=== PATIENT | female | born 1950 | race Caucasian/White ===

== ENCOUNTER → 2017-03-08 | Outpatient (CLI) | payer MEDICARE ==
[~2017-03-08] MED LIST: ASPI1TAB PO; CALTCHW5 PO; CENT1TAB PO; COUM2.5T17 PO; LEVO50TA5 PO; LISI-542 PO; LOVA40TA PO; OSTETAB4 PO; ROPI0.25 PO; ROPI1TAB PO; STOO100C PO; TRAM50TA2 PO; TYLE500T78 PO
[2017-03-08 11:34] LABS: MEAN CORPUSCULAR HEMOGLOBIN 31.6 pg (27.0-33.0); MEAN CORPUSCULAR HGB CONC 32.9 g/dl (32.0-36.5); RED CELL DISTRIBUTION WIDTH 13.4 % (11.5-14.5); WHITE BLOOD COUNT 3.4 K/mm3 (4.0-10.0)
[2017-03-08 11:37] LABS: CALCIUM OXALATE CRYSTALS MODERATE
[2017-03-08 11:38] LABS: INR 0.92
--- NOTE | 2017-03-08 11:56 | REP ---
CHEST, TWO VIEWS: HISTORY: Parkinson's disease. Calcified granuloma are present in the lower lobes. The heart is normal in size. The pulmonary vasculature is normal in appearance. Degenerative change is present in the thoracic spine. IMPRESSION: Old granulomatous disease. Signed by Rafa Cuevas MD 03/08/2017 12:06 P
[2017-03-08 12:08] LABS: ALBUMIN/GLOBULIN RATIO 1.25 (1.00-1.93); ALKALINE PHOSPHATASE 64 U/L (45-117); ALT/SGPT 16 U/L (12-78); ANION GAP 6 MEQ/L (8-16); AST/SGOT 15 U/L (15-37); BILIRUBIN,TOTAL 0.4 MG/DL (0.2-1.0); BLOOD UREA NITROGEN 12 MG/DL (7-18); CALCIUM LEVEL 9.5 MG/DL (8.8-10.2); CARBON DIOXIDE LEVEL 32 MEQ/L (21-32); CHLORIDE LEVEL 105 MEQ/L (98-107); CREATININE FOR GFR 0.93 MG/DL (0.55-1.02); GLOMERULAR FILTRATION RATE > 60.0 (>45); GLUCOSE, FASTING 112 MG/DL (80-110); POTASSIUM SERUM 3.5 MEQ/L (3.5-5.1); SODIUM LEVEL 143 MEQ/L (136-145); TOTAL PROTEIN 7.2 GM/DL (6.4-8.2)
--- NOTE | 2017-03-08 20:33 | ECGEPIP ---
Stationary ECG Study [facility] Test Date: 2017-03-08 Pat Name: PAOLO GUO Department: Room: - Gender: F Field Contact Person: MARIA ELENA : 1950 Requested By: Elio Gillette Order Number: [id number] Reading MD: Reese Perry Measurements Intervals [place] Rate: 65 P: 88 ND: 144 QRS: -6 QRSD: 104 T: 12 QT: 399 QTc: 417 Interpretive Statements SINUS RHYTHM Nonspecific precordial T-wave abnormalities. No prior tracing. Clinical correlation advised. Electronically Signed On 03-08-2017 20:33:31 EDT by Reese Perry
== END ==
LOC: M ADMPAT 09:40
PROVIDERS: ATTEND Orthopaedic Surgery
DX: Z01.818 Encounter for other preprocedural examination (principal); M17.11 Unilateral primary osteoarthritis, right knee; Z79.899 Other long term (current) drug therapy

== ENCOUNTER 2017-03-21 06:38 | Inpatient (IN) | payer MEDICARE ==
[2017-03-08 11:11] VITALS: BP 150/84
--- NOTE | 2017-03-18 05:44 | HPE ---
DATE OF ADMISSION: 03/21/2017 ATTENDING PHYSICIAN: Dr. Elio Gillette. CHIEF COMPLAINT: Right knee pain and stiffness. HISTORY: The patient is a pleasant 66-year-old female with progressively worsening right knee pain and stiffness. She has failed to improve with conservative measures. She continues to have pain with weightbearing activities and activities of daily living. She is consented for an elective right total knee arthroplasty with Dr. Gillette. Medical optimization from Dr. Villalba received and reviewed during today's visit. CURRENT MEDICATIONS: - aspirin 81 mg daily - Caltrate with vitamin D 600/400 mg twice daily - Centrum tablet daily - glucosamine chondroitin daily - Levoxyl 50 mcg daily - lisinopril 5 mg daily - lovastatin 40 mg daily - Requip 0.5 mg three times daily ALLERGIES: No known drug allergies CURRENT MEDICAL CONDITIONS: 1. Parkinson's disease. 2. Stage III chronic kidney disease. 3. Normochromic, normocytic anemia. 4. Essential hypertension. 5. Fatigue. 6. Hyperlipidemia. 7. Hypothyroidism. 8. Impaired fasting glucose. SURGICAL HISTORY: Appendectomy. SOCIAL HISTORY: The patient is not a smoker and only socially consumes alcohol. She is living with her daughter. REVIEW OF SYSTEMS: The patient denies fevers, chills, nausea, vomiting or diarrhea. She denies chest pain, shortness of breath, lightheadedness, dizziness or headaches. She does have continued right knee pain with weightbearing activities and activities of daily living. EXAMINATION: GENERAL: Well-nourished, well-developed female in no apparent distress. NECK: No lymphadenopathy or jugular venous distention noted. HEART: Regular rate and rhythm. LUNGS: Clear to auscultation bilaterally. ABDOMEN: Soft, nontender to palpation. MUSCULOSKELETAL: The patient is walking with a slight limp favoring the right side. Inspection of the right knee revealed no gross abnormalities. Her skin is intact. She can extend to about 5 degrees and flex fully. Right lower extremity strength is normal. There was no hip irritability elicited with range of motion. Her calf is soft and nontender to palpation with no palpable cords noted. Pedal pulses are palpable. Right lower extremity appears to be warm and well perfused. VITAL SIGNS: Height 5 feet 3 inches, weight 172 pounds. Temperature 97.6, blood pressure 166/88, heart rate 84, respiratory rate 20. DIAGNOSTIC DATA: Chest x-ray reveals old granulomatous disease. EKG sinus rhythm with nonspecific precordial T-wave abnormalities. Urinalysis negative with urine culture revealing less than 10,000 colony-forming units (CFU) per mL. Nasal and sinus culture show no growth. Complete blood count: WBC is decreased at 3.4. RBC is decreased at 3.72. Hemoglobin decreased at 11.8, hematocrit decreased at 35.7, platelets 257. Erythrocyte sedimentation rate 26. Prothrombin time 12.4, INR 0.92. Comprehensive metabolic profile: Fasting glucose elevated at 112, BUN 12, creatinine 0.93, GFR greater than 60, sodium 143, potassium 3.5, chloride 105, carbon dioxide 32, anion gap decreased at six, calcium 9.5, AST 15, ALT 16, alkaline phosphatase 64, total bilirubin 0.4, total protein 7.2, albumin 4.0, albumin-globulin ratio 1.25. ASSESSMENT: Right knee osteoarthritis with x-ray notable for end-stage degenerative changes. PLAN: The patient has consented for an elective right total knee arthroplasty with Dr. Gillette. NOREEN
[~2017-03-21] VITALS: Ht 162.6 cm; Wt 78.5 kg
[2017-03-21] VITALS (10 sets, daily range): BP systolic 145–192; BP diastolic 65–87; O2SAT 96–97
[~2017-03-21 06:38] MED LIST changes: -COUM2.5T17 PO; -TRAM50TA2 PO
[2017-03-21] MEDS ORDERED: LR 1,000 ML IV SCH ×3 (07:00→11:45)
[2017-03-21] MEDS ORDERED: LIDOCAINE 1% SDV 5 ML VIAL SQ ONE (07:00)
[2017-03-21] MEDS ORDERED: MIDAZOLAM INJ 2 MG/2 ML VIAL (J2250) As Ordered ONE ×2 (08:19→10:39)
[2017-03-21] MEDS ORDERED: fentaNYL 100 MCG/2 ML INJECTION (J3010) As Ordered ONE ×2 (08:19→09:46)
[2017-03-21] MEDS ORDERED: TRANEXAMIC ACID 100 MG/ML 10ML VIAL As Ordered ONE (08:48)
[2017-03-21] MEDS ORDERED: BUPIVACAINE HCL 0.25% 30 ML VIAL As Ordered ONE (08:48)
[2017-03-21] MEDS ORDERED: EPINEPHrine INJ 1 MG/ML 1ML AMP As Ordered ONE (08:49)
[2017-03-21] MEDS ORDERED: ceFAZolin 1GM INJ (J0690) As Ordered ONE (08:49)
[2017-03-21] MEDS: MIDAZOLAM INJ 2 MG/2 ML VIAL (J2250) IV SCH ×2 (08:54→08:56)
[2017-03-21] MEDS ORDERED: fentaNYL 100 MCG/2 ML INJECTION (J3010) IV SCH (09:30)
--- NOTE | 2017-03-21 09:47 | HPE ---
DATE OF ADMISSION: 03/21/2017 The patient seen and examined. She wished to go ahead with a right knee replacement. Her medical clearance was obtained. She understands the nature of procedure, the risks of bleeding, infection, damage to nerves, vessels, persistent pain, wear loosening, blood clots, medical problems, , among others on.
[2017-03-21] MEDS ORDERED: FLEET ENEMA PR PRN (11:45)
[2017-03-21] MEDS ORDERED: fentaNYL 100 MCG/2 ML INJECTION (J3010) IV PRN (11:45)
[2017-03-21] MEDS ORDERED: PERCOCET 5MG/325MG TAB PO PRN (11:45)
[2017-03-21] MEDS ORDERED: ONDANSETRON 4MG/2ML VIAL (J2405) IV PRN ×3 (11:45→12:00)
[2017-03-21] MEDS ORDERED: HYDROmorphone HCL 1 MG/ML SYRINGE (J1170) IV PRN (11:45)
[2017-03-21] MEDS ORDERED: MORPHINE 1MG/ML IN 0.9% NACL 100ML IV BAG IV PRN (12:00)
[2017-03-21] MEDS ORDERED: EPIDURAL/PCA KEYS XX PRN (12:00)
[2017-03-21] MEDS ORDERED: NALOXONE INJ 0.4 MG/1 ML VIAL (J2310) IV PRN (12:00)
[2017-03-21] MEDS ORDERED: diphenhydrAMINE INJ 50MG/ML VIAL (J1200) IV PRN (12:00)
[2017-03-21] MEDS ORDERED: NALBUPHINE HCL 10 MG/ML AMP (J2300) IV PRN (12:00)
[2017-03-21] MEDS ORDERED: PATIENT IS CURRENTLY ON AN ON-Q PAIN BUSTER PAIN RELIEF SYSTEM XX SCH (13:45)
[2017-03-21] MEDS ORDERED: LIDOCAINE 2% INJ 100 MG/5 ML SDV (FOR ANES.) As Ordered ONE (13:59)
[2017-03-21] MEDS ORDERED: PROPOFOL 200 MG/20 ML VIAL As Ordered ONE (13:59)
--- NOTE | 2017-03-21 14:13 | CR.PDOC ---
[facility] Consultation Consultation DATE OF CONSULTATION: 03/21/17 PRIMARY CARE PHYSICIAN: Dr. Malhotra REFERRING PROVIDER: Dr. Gillette ATTENDING PHYSICIAN: Dr. Gillette REASON FOR CONSULTATION/CHIEF COMPLAINT: Medical comanagement HISTORY OF PRESENT ILLNESS: This is a 66-year-old female past medical history of Parkinson's disease diagnosed in September, CK D stage III, history of frequent UTIs, hypertension who presents for an elective knee arthroplasty for symptomatic arthritis. We have been consulted for medical comanagement. Patient denies any chest pain/shortness breath/palpitations. No nausea/vomiting/ abd pain. States she currently feels well postop. States she has a history of chronic kidney disease however has been trying to get into her nephrologists clinic in [place] for follow-up. States she occasionally takes hydrochlorothiazide for edema however has not had any recent edema and her hydrochlorothiazide had been stopped because of her renal function. ALLERGIES: Please see below. HOME MEDICATIONS: Please see below. PAST MEDICAL HISTORY: As per HPI PAST SURGICAL HISTORY: Cholecystectomy, appendectomy, breast mass excision ( benign), hernia repair, parathyroid resection FAMILY HISTORY: Noncontributory SOCIAL HISTORY: Denies tobacco, alcohol, illicit drug use. REVIEW OF SYSTEMS: HEENT: Denies sore throat/headache CARDIOVASCULAR: Denies chest pain/palpitations RESPIRATORY: Denies shortness of breath/cough GASTROINTESTINAL: denies nausea/vomiting GENITOURINARY: Denies dysuria/urinary urgency. MUSCULOSKELETAL: Denies myalgias/arthralgias NEUROLOGICAL: Denies any focal weakness PHYSICAL EXAMINATION: Vitals: (see below) General: No acute distress, laying comfortably in bed. HEENT: Moist mucous membranes. Neck: No JVD or lymphadenopathy Cardiac: RRR, No murmurs Pulm: Clear to auscultation b/l. No wheezing, rhonchi Abd: NT/ND + BS Ext: No edema or cyanosis. Right knee with Miguelito bandage. Distal pulses intact. Right upper extremity with resting tremor. LABORATORY DATA: Please see below. CBC/BMP/magnesium pending. ASSESSMENT/PLAN: 1. Postop day 0 status post knee arthroplasty for symptomatic arthritis. Management per orthopedics. 2. History of Parkinson's disease- continue home meds 3. History of hypertension- continue home meds 4. History of CAD stage III- we'll repeat BMP now. Avoid nephrotoxins. 5. History of hyperparathyroidism status post resection 6. Hypothyroidism- continue Synthroid 7. Hyperlipidemia- continue statin DVT prophylaxis- per orthopedics Patient was followed by Dr. Luana Moreira starting 03/22/17 at 7 AM. Vital Signs/I&O Vital Signs Date Time Temp Pulse Resp B/P (MAP) Pulse Ox O2 Delivery O2 Flow Rate FiO2 03/21/17 13:55 96 Nasal Cannula 2.0 03/21/17 13:15 98.6 66 15 148/76 (100) Allergies Coded Allergies: No Known Allergies (Verified , 02/25/03) Home Medications Scheduled (Caltrate 600+D 600-400 mg-Unit) 1 Chw Chw, 1 CHW PO DAILY, (Reported) (Osteo Bi-Flex Advanced Do) 1 Tab Tab, 1 TAB PO DAILY, (Reported) Aspirin (Aspirin 81) 81 Mg Tab, 81 MG PO DAILY, #30 (Reported) Docusate Sodium (Stool Softener) 100 Mg Cap, 200 MG PO DAILY, (Reported) Levothyroxine Sodium (Synthroid) 50 Mcg Tab, 50 MCG PO DAILY, (Reported) Lisinopril (Lisinopril) 5 Mg Tab, 5 MG PO DAILY, (Reported) Lovastatin (Lovastatin) 40 Mg Tab, 40 MG PO QHS, (Reported) Multivitamins (Centrum Silver Adult 50+) 1 Tab Tab, 1 TAB PO DAILY, (Reported) Ropinirole Hydrochloride (Ropinirole HCl) 0.25 Mg Tab, 0.25 MG PO TID, (Reported ) Ropinirole Hydrochloride (Ropinirole HCl) 1 Mg Tab, 1 MG PO TID, (Reported) Scheduled PRN Acetaminophen (Tylenol Extra Strength) 500 Mg Tab, 1,000 MG PO Q6H PRN for PAIN, (Reported) RAPID RELEASE STARR BRADLEY MD Mar 21, 2017 14:13
[2017-03-21 14:30] LABS: MEAN CORPUSCULAR HEMOGLOBIN 31.9 pg (27.0-33.0); MEAN CORPUSCULAR HGB CONC 33.2 g/dl (32.0-36.5); MEAN CORPUSCULAR VOLUME 95.9 fl (80.0-96.0); RED CELL DISTRIBUTION WIDTH 13.3 % (11.5-14.5); WHITE BLOOD COUNT 6.8 K/mm3 (4.0-10.0)
[2017-03-21 14:38] LABS: INR 0.97
[2017-03-21 14:54] LABS: ANION GAP 8 MEQ/L (8-16); BLOOD UREA NITROGEN 14 MG/DL (7-18); CALCIUM LEVEL 9.2 MG/DL (8.8-10.2); CARBON DIOXIDE LEVEL 29 MEQ/L (21-32); CHLORIDE LEVEL 105 MEQ/L (98-107); CREATININE FOR GFR 0.82 MG/DL (0.55-1.02); GLOMERULAR FILTRATION RATE > 60.0 (>45); GLUCOSE, FASTING 135 MG/DL (80-110); MAGNESIUM LEVEL 1.9 MG/DL (1.8-2.4); POTASSIUM SERUM 3.9 MEQ/L (3.5-5.1); SODIUM LEVEL 142 MEQ/L (136-145)
[2017-03-21] MEDS: LISINOPRIL 5 MG TAB PO SCH (15:26)
[2017-03-21] MEDS: rOPINIRole 1MG TAB PO SCH ×2 (15:26→20:20)
[2017-03-21] MEDS: rOPINIRole 0.25 MG TAB(REQUIP) PO SCH ×2 (15:26→20:20)
[2017-03-21] MEDS: LR 1,000 ML IV SCH (15:26)
[2017-03-21] MEDS: DOCUSATE SODIUM 100 MG CAP PO SCH (15:26)
[2017-03-21] MEDS: MULTIVITAMINS/MINERALS THERAP 1 TAB PO SCH (15:30)
[2017-03-21] MEDS ORDERED: WARFARIN SOD 5 MG TAB PO ONE (17:00)
[2017-03-21] MEDS: ceFAZolin SOD 1 GM in D5W MINI-BAG PLUS 50 ML IV SCH (18:00)
[2017-03-21] MEDS: SIMVASTATIN 40 MG TAB PO SCH (20:19)
[2017-03-21] MEDS ORDERED: hydrOXYzine 25 MG TAB PO ONE (23:00)
[2017-03-22] VITALS (7 sets, daily range): BP systolic 121–200; BP diastolic 58–98; O2SAT 92
[2017-03-22] MEDS: LR 1,000 ML IV SCH (01:05)
[2017-03-22] MEDS: ACETAMINOPHEN TAB 650MG DOSE (2X325MG) PO PRN ×2 (01:32→06:27)
[2017-03-22] MEDS: ceFAZolin SOD 1 GM in D5W MINI-BAG PLUS 50 ML IV SCH (02:04)
[2017-03-22] MEDS ORDERED: LABETALOL 200 MG TAB PO ONE (03:00)
[2017-03-22] MEDS: LEVOTHYROXINE 50MCG TABLET (0.05MG) PO SCH (06:27)
[2017-03-22 06:32] LABS: MEAN CORPUSCULAR HEMOGLOBIN 32.6 pg (27.0-33.0); MEAN CORPUSCULAR HGB CONC 33.8 g/dl (32.0-36.5); MEAN CORPUSCULAR VOLUME 96.5 fl (80.0-96.0); RED CELL DISTRIBUTION WIDTH 13.4 % (11.5-14.5)
[2017-03-22 06:39] LABS: INR 1.24
[2017-03-22] MEDS ORDERED: ONDANSETRON 4 MG TAB (S0181) PO PRN (06:45)
[2017-03-22 07:00] LABS: ANION GAP 10 MEQ/L (8-16); BLOOD UREA NITROGEN 15 MG/DL (7-18); CALCIUM LEVEL 8.8 MG/DL (8.8-10.2); CARBON DIOXIDE LEVEL 29 MEQ/L (21-32); CHLORIDE LEVEL 102 MEQ/L (98-107); GLOMERULAR FILTRATION RATE > 60.0 (>45); GLUCOSE, FASTING 152 MG/DL (80-110); MAGNESIUM LEVEL 1.7 MG/DL (1.8-2.4); POTASSIUM SERUM 3.7 MEQ/L (3.5-5.1); SODIUM LEVEL 141 MEQ/L (136-145)
[2017-03-22] MEDS: MIRALAX *UNIT DOSE* 17GM PACKET PO SCH (08:21)
[2017-03-22] MEDS: MOM 30ML SUSPENSION UDC PO SCH (08:21)
[2017-03-22] MEDS: rOPINIRole 1MG TAB PO SCH ×3 (08:22→21:10)
[2017-03-22] MEDS: LISINOPRIL 5 MG TAB PO SCH (08:22)
[2017-03-22] MEDS: traMADol 50 MG TAB PO PRN ×4 (08:22→23:00)
[2017-03-22] MEDS: SENOKOT S TAB PO SCH ×2 (08:22→21:11)
[2017-03-22] MEDS: rOPINIRole 0.25 MG TAB(REQUIP) PO SCH ×3 (08:22→21:10)
[2017-03-22] MEDS: DOCUSATE SODIUM 100 MG CAP PO SCH (08:22)
[2017-03-22] MEDS: MULTIVITAMINS/MINERALS THERAP 1 TAB PO SCH (08:22)
--- NOTE | 2017-03-22 11:58 | REP ---
RIGHT KNEE, TWO VIEWS: HISTORY: Knee replacement. COMPARISON: 02/06/2016 The patient is status post right total knee replacement. There is no acute fracture or dislocation. Surgical arielle and a small amount of air are present in the overlying subcutaneous tissue. IMPRESSION: The patient is status post right total knee replacement. There is anatomic alignment. Signed by Rafa Cuevas MD 03/22/2017 12:31 P
--- NOTE | 2017-03-22 13:16 | IPNPDOC ---
Date Seen The patient was seen on 03/22/17. Progress Note Hospitalist Progress Note Subjective: Patient states that she has significant pain in her knee, she does note that she just worked with physical therapy Objective: Physical Exam: Vitals: Vital Sign - Last 24 Hours 03/21/17 03/21/17 03/21/17 03/21/17 13:55 14:15 15:15 15:26 Temp 97.9 98.7 Pulse 81 78 Resp 15 13 B/P (MAP) 184/82 (116) 180/84 (116) 180/84 Pulse Ox 96 98 94 O2 Delivery Nasal Cannula Room Air Room Air O2 Flow Rate 2.0 03/21/17 03/21/17 03/21/17 03/21/17 16:15 17:15 20:00 20:00 Temp 99.0 99.5 Pulse 97 113 Resp 14 19 B/P (MAP) 147/65 (92) 192/81 (118) Pulse Ox 95 97 97 O2 Delivery Room Air Room Air Nasal Cannula Nasal Cannula O2 Flow Rate 2.0 2.0 03/21/17 03/21/17 03/22/17 03/22/17 22:00 22:23 02:00 02:00 Temp 97.7 98.1 Pulse 116 113 114 118 Resp 16 17 B/P (MAP) 187/87 (120) 169/83 (111) 200/98 (132) 200/98 (132) Pulse Ox 97 96 O2 Delivery Room Air Room Air 03/22/17 03/22/17 03/22/17 03/22/17 02:40 03:01 04:10 06:00 Temp 98.9 Pulse 118 95 79 Resp 16 B/P (MAP) 182/80 (114) 182/80 147/85 (105) 121/58 (79) Pulse Ox 91 O2 Delivery Room Air 03/22/17 03/22/17 03/22/17 03/22/17 08:22 08:22 08:30 08:52 Resp 14 14 B/P (MAP) 121/58 O2 Delivery Room Air Room Air 03/22/17 03/22/17 09:54 13:01 Resp 14 Pulse Ox 92 O2 Delivery Room Air General: Awake, Alert, no acute distress HEENT: Normocephalic, atraumatic, extraocular movements intact CV: Regular rate and rhythm Lungs: Clear to auscultation bilaterally Abd: Soft, nontender, nondistended Extremities: Pedal pulses intact bilaterally, right knee in an Miguelito bandage Neuro: Alert and oriented 3, normal speech Psych: And normal mood and affect Labs and Imaging: Laboratory Tests 03/21/17 14:23 Red Blood Count 3.59 L, Mean Corpuscular Volume 95.9, Mean Corpuscular Hemoglobin 31.9, Mean Corpuscular Hemoglobin Concent 33.2, Red Cell Distribution Width 13.3, Calcium Level 9.2 03/22/17 06:16 Red Blood Count 3.05 L, Mean Corpuscular Volume 96.5 H, Mean Corpuscular Hemoglobin 32.6, Mean Corpuscular Hemoglobin Concent 33.8, Red Cell Distribution Width 13.4, Calcium Level 8.8 Assessment and Plan: 66-year-old female with Parkinson's disease, chronic kidney disease stage III, hypertension, hypothyroidism who was admitted by orthopedics for an elective right knee arthroplasty. We have been consulted for medical comanagement. 1. Chronic kidney disease stage III: The patient's BUN, creatinine, and GFR are currently within normal limits. We'll continue to monitor and we'll avoid nephrotoxic medications. 2. Hypertension: BP was elevated last night when the patient was agitated and in pain, but it is now improving. We'll continue to monitor and will continue home MIGUELITO inhibitor. 3. Hypothyroidism: Continue home Synthroid. 4. Parkinson's disease: Continue home Requip. DVT prophylaxis: As per her primary surgical team VS, I&O, 24H, [facility] Vital Signs/I&O Vital Signs Date Time Temp Pulse Resp B/P (MAP) Pulse Ox O2 Delivery O2 Flow Rate FiO2 03/22/17 13:01 14 03/22/17 09:54 92 Room Air 03/22/17 08:22 121/58 03/22/17 06:00 98.9 79 03/21/17 20:00 2.0 I&O- Last 24 Hours up to 6 AM 03/22/17 06:00 Intake Total 2200 ml Output Total 1150 ml Balance 1050 ml Laboratory Data 24H LABS Laboratory Tests 2 03/21/17 14:23: Prothrombin Time 13.0, Prothromb Time International Ratio 0.97, Activated Partial Thromboplast Time 26.9, Anion Gap 8, Glomerular Filtration Rate > 60.0, Blood Urea Nitrogen 14, Creatinine 0.82, Sodium Level 142, Potassium Level 3.9, Chloride Level 105, Carbon Dioxide Level 29, Calcium Level 9.2, Magnesium Level 1.9 03/22/17 06:16: Prothrombin Time 15.8H, Prothromb Time International Ratio 1.24, Anion Gap 10, Glomerular Filtration Rate > 60.0, Blood Urea Nitrogen 15, Creatinine 0.90, Sodium Level 141, Potassium Level 3.7, Chloride Level 102, Carbon Dioxide Level 29, Calcium Level 8.8, Magnesium Level 1.7L CBC/BMP Laboratory Tests 03/21/17 14:23 Red Blood Count 3.59 L, Mean Corpuscular Volume 95.9, Mean Corpuscular Hemoglobin 31.9, Mean Corpuscular Hemoglobin Concent 33.2, Red Cell Distribution Width 13.3, Calcium Level 9.2 03/22/17 06:16 Red Blood Count 3.05 L, Mean Corpuscular Volume 96.5 H, Mean Corpuscular Hemoglobin 32.6, Mean Corpuscular Hemoglobin Concent 33.8, Red Cell Distribution Width 13.4, Calcium Level 8.8 NICKY BURRELL Mar 22, 2017 13:16
[2017-03-22] MEDS ORDERED: WARFARIN SOD 5 MG TAB PO ONE (17:00)
[2017-03-22] MEDS: SIMVASTATIN 40 MG TAB PO SCH (21:11)
[2017-03-23 06:00] VITALS: BP 123/65
[2017-03-23] MEDS: LEVOTHYROXINE 50MCG TABLET (0.05MG) PO SCH (06:01)
[2017-03-23] MEDS: traMADol 50 MG TAB PO PRN ×2 (06:02→13:40)
[2017-03-23 06:52] LABS: MEAN CORPUSCULAR HEMOGLOBIN 32.7 pg (27.0-33.0); MEAN CORPUSCULAR HGB CONC 34.1 g/dl (32.0-36.5); MEAN CORPUSCULAR VOLUME 96.1 fl (80.0-96.0); RED CELL DISTRIBUTION WIDTH 13.4 % (11.5-14.5); WHITE BLOOD COUNT 5.2 K/mm3 (4.0-10.0)
[2017-03-23 06:57] LABS: INR 2.08
[2017-03-23 07:11] LABS: ANION GAP 7 MEQ/L (8-16); BLOOD UREA NITROGEN 13 MG/DL (7-18); CALCIUM LEVEL 8.7 MG/DL (8.8-10.2); CARBON DIOXIDE LEVEL 33 MEQ/L (21-32); CHLORIDE LEVEL 101 MEQ/L (98-107); GLOMERULAR FILTRATION RATE > 60.0 (>45); GLUCOSE, FASTING 95 MG/DL (80-110); POTASSIUM SERUM 3.7 MEQ/L (3.5-5.1); SODIUM LEVEL 141 MEQ/L (136-145)
[2017-03-23] MEDS ORDERED: COUM2.5T17 PO (07:46)
[2017-03-23] MEDS ORDERED: TRAM50TA2 PO (07:46)
[2017-03-23] MEDS: MOM 30ML SUSPENSION UDC PO SCH (09:32)
[2017-03-23] MEDS: rOPINIRole 1MG TAB PO SCH ×3 (09:32→20:11)
[2017-03-23] MEDS: rOPINIRole 0.25 MG TAB(REQUIP) PO SCH ×3 (09:33→20:11)
[2017-03-23] MEDS: DOCUSATE SODIUM 100 MG CAP PO SCH (09:33)
[2017-03-23] MEDS: MULTIVITAMINS/MINERALS THERAP 1 TAB PO SCH (09:33)
[2017-03-23] MEDS: SENOKOT S TAB PO SCH ×2 (09:33→20:11)
[2017-03-23] MEDS: LISINOPRIL 5 MG TAB PO SCH (09:34)
[2017-03-23] MEDS: MIRALAX *UNIT DOSE* 17GM PACKET PO SCH (09:34)
--- NOTE | 2017-03-23 12:20 | IPNPDOC ---
Date Seen The patient was seen on 03/23/17. Progress Note Hospitalist Progress Note Subjective: Patient states that her knee pain is a little better but still noticeable; she otherwise has no complaints Objective: Physical Exam: Vitals: Vital Sign - Last 24 Hours 03/22/17 03/22/17 03/22/17 03/22/17 13:01 13:31 14:00 16:44 Temp 99.7 Pulse 76 Resp 14 14 12 15 B/P (MAP) 135/64 (87) Pulse Ox 95 O2 Delivery Room Air 03/22/17 03/22/17 03/22/17 03/22/17 18:02 19:59 22:00 23:00 Temp 99.8 Pulse 83 Resp 16 16 B/P (MAP) 144/65 (91) Pulse Ox 95 O2 Delivery Room Air Room Air Room Air 03/23/17 03/23/17 03/23/17 03/23/17 06:00 06:02 07:00 09:34 Temp 97.9 Pulse 80 Resp 16 14 18 B/P (MAP) 123/65 (84) 123/65 Pulse Ox 96 O2 Delivery Room Air 03/23/17 09:43 O2 Delivery Room Air General: Awake, Alert, no acute distress HEENT: Normocephalic, atraumatic, extraocular movements intact CV: Regular rate and rhythm Lungs: Clear to auscultation bilaterally Abd: Soft, nontender, nondistended Extremities: Pedal pulses intact bilaterally, right knee in an Miguelito bandage Neuro: Alert and oriented 3, normal speech Psych: normal mood and affect Labs and Imaging: Laboratory Tests 03/23/17 06:15 Red Blood Count 2.85 L, Mean Corpuscular Volume 96.1 H, Mean Corpuscular Hemoglobin 32.7, Mean Corpuscular Hemoglobin Concent 34.1, Red Cell Distribution Width 13.4, Calcium Level 8.7 L Assessment and Plan: 66-year-old female with Parkinson's disease, chronic kidney disease stage III, hypertension, hypothyroidism who was admitted by orthopedics for an elective right knee arthroplasty. We have been consulted for medical comanagement. 1. Chronic kidney disease stage III: The patient's BUN, creatinine, and GFR are currently within normal limits. We'll continue to monitor and we'll avoid nephrotoxic medications. 2. Hypertension: Adequately controlled. We'll continue to monitor and will continue home MIGUELITO inhibitor. 3. Hypothyroidism: Continue home Synthroid. 4. Parkinson's disease: Continue home Requip. DVT prophylaxis: As per her primary surgical team VS, I&O, 24H, [facility] Vital Signs/I&O Vital Signs Date Time Temp Pulse Resp B/P (MAP) Pulse Ox O2 Delivery O2 Flow Rate FiO2 03/23/17 09:43 Room Air 03/23/17 09:34 123/65 03/23/17 07:00 18 03/23/17 06:00 97.9 80 96 03/21/17 20:00 2.0 I&O- Last 24 Hours up to 6 AM 03/23/17 06:00 Intake Total 600 ml Output Total 650 ml Balance -50 ml Laboratory Data 24H LABS Laboratory Tests 2 03/23/17 06:15: Prothrombin Time 24.1H, Prothromb Time International Ratio 2.08, Anion Gap 7L, Glomerular Filtration Rate > 60.0, Blood Urea Nitrogen 13, Creatinine 0.80, Sodium Level 141, Potassium Level 3.7, Chloride Level 101, Carbon Dioxide Level 33H, Calcium Level 8.7L, Magnesium Level 2.0 CBC/BMP Laboratory Tests 03/23/17 06:15 Red Blood Count 2.85 L, Mean Corpuscular Volume 96.1 H, Mean Corpuscular Hemoglobin 32.7, Mean Corpuscular Hemoglobin Concent 34.1, Red Cell Distribution Width 13.4, Calcium Level 8.7 L NICKY BURRELL Mar 23, 2017 12:20
[2017-03-23 14:00] VITALS: BP 127/60
[2017-03-23] MEDS ORDERED: WARFARIN SOD 2.5 MG TAB PO ONE (17:00)
[2017-03-23] MEDS: ACETAMINOPHEN TAB 650MG DOSE (2X325MG) PO PRN ×2 (18:05→22:09)
[2017-03-23] MEDS: SIMVASTATIN 40 MG TAB PO SCH (20:11)
[2017-03-23 20:48] VITALS: O2SAT 93
[2017-03-23 22:00] VITALS: BP 125/60
[2017-03-24] MEDS: ACETAMINOPHEN TAB 650MG DOSE (2X325MG) PO PRN ×2 (02:39→08:53)
[2017-03-24] MEDS: LEVOTHYROXINE 50MCG TABLET (0.05MG) PO SCH (05:50)
[2017-03-24 06:00] VITALS: BP 108/53
[2017-03-24 07:26] LABS: INR 2.14
[2017-03-24 07:28] LABS: ANION GAP 10 MEQ/L (8-16); BLOOD UREA NITROGEN 16 MG/DL (7-18); CALCIUM LEVEL 8.4 MG/DL (8.8-10.2); CARBON DIOXIDE LEVEL 32 MEQ/L (21-32); CHLORIDE LEVEL 100 MEQ/L (98-107); CREATININE FOR GFR 0.75 MG/DL (0.55-1.02); GLOMERULAR FILTRATION RATE > 60.0 (>45); GLUCOSE, FASTING 103 MG/DL (80-110); MAGNESIUM LEVEL 2.3 MG/DL (1.8-2.4); POTASSIUM SERUM 3.6 MEQ/L (3.5-5.1); SODIUM LEVEL 142 MEQ/L (136-145)
[2017-03-24] MEDS: rOPINIRole 1MG TAB PO SCH (08:49)
[2017-03-24] MEDS: MULTIVITAMINS/MINERALS THERAP 1 TAB PO SCH (08:49)
[2017-03-24 08:50] VITALS: BP 108/53
[2017-03-24] MEDS: MIRALAX *UNIT DOSE* 17GM PACKET PO SCH (08:50)
[2017-03-24] MEDS: MOM 30ML SUSPENSION UDC PO SCH (08:50)
[2017-03-24] MEDS: LISINOPRIL 5 MG TAB PO SCH (08:50)
[2017-03-24] MEDS: SENOKOT S TAB PO SCH (08:50)
[2017-03-24] MEDS: rOPINIRole 0.25 MG TAB(REQUIP) PO SCH (08:50)
[2017-03-24] MEDS: DOCUSATE SODIUM 100 MG CAP PO SCH (08:50)
[2017-03-24 09:41] VITALS: O2SAT 98
--- NOTE | 2017-03-24 14:01 | IPNPDOC ---
Date Seen The patient was seen on 03/24/17. Progress Note Hospitalist Progress Note Subjective: Patient denies any problems other than pain in her knee Objective: Physical Exam: Vitals: Vital Sign - Last 24 Hours 03/23/17 03/23/17 03/23/17 03/24/17 15:17 20:48 22:00 06:00 Temp 98.8 98.3 Pulse 74 67 Resp 18 13 14 B/P (MAP) 125/60 (81) 108/53 (71) Pulse Ox 93 99 99 O2 Delivery Room Air Room Air Room Air 03/24/17 03/24/17 03/24/17 08:50 09:39 09:41 B/P (MAP) 108/53 Pulse Ox 98 O2 Delivery Room Air Room Air General: Awake, Alert, no acute distress HEENT: Normocephalic, atraumatic, extraocular movements intact CV: Regular rate and rhythm Lungs: Clear to auscultation bilaterally Abd: Soft, nontender, nondistended Extremities: Pedal pulses intact bilaterally, right knee in an Miguelito bandage Neuro: Alert and oriented 3, normal speech Psych: normal mood and affect Labs and Imaging: Laboratory Tests 03/24/17 06:15 Calcium Level 8.4 L Assessment and Plan: 66-year-old female with Parkinson's disease, chronic kidney disease stage III, hypertension, hypothyroidism who was admitted by orthopedics for an elective right knee arthroplasty. We have been consulted for medical comanagement. 1. Chronic kidney disease stage III: The patient's BUN, creatinine, and GFR are currently within normal limits. We'll continue to monitor and we'll avoid nephrotoxic medications. 2. Hypertension: Adequately controlled. We'll continue to monitor and will continue home MIGUELITO inhibitor. 3. Hypothyroidism: Continue home Synthroid. 4. Parkinson's disease: Continue home Requip. DVT prophylaxis: As per her primary surgical team VS, I&O, 24H, [facility] Vital Signs/I&O Vital Signs Date Time Temp Pulse Resp B/P (MAP) Pulse Ox O2 Delivery O2 Flow Rate FiO2 03/24/17 09:41 98 Room Air 03/24/17 08:50 108/53 03/24/17 06:00 98.3 67 14 03/21/17 20:00 2.0 I&O- Last 24 Hours up to 6 AM 03/24/17 05:59 Intake Total 840 ml Output Total 750 ml Balance 90 ml Laboratory Data 24H LABS Laboratory Tests 2 03/24/17 06:15: Prothrombin Time 24.7H, Prothromb Time International Ratio 2.14, Anion Gap 10, Glomerular Filtration Rate > 60.0, Blood Urea Nitrogen 16, Creatinine 0.75, Sodium Level 142, Potassium Level 3.6, Chloride Level 100, Carbon Dioxide Level 32, Calcium Level 8.4L, Magnesium Level 2.3 CBC/BMP Laboratory Tests 03/24/17 06:15 Calcium Level 8.4 L NICKY BURRELL Mar 24, 2017 14:01
--- NOTE | 2017-03-30 15:29 | DSES ---
DATE OF ADMISSION: 03/21/2017 DATE OF DISCHARGE: 03/24/2017 ADMITTING DIAGNOSIS: Right knee osteoarthritis. OTHER DIAGNOSES: 1. Parkinson's disease. 2. Stage III chronic kidney disease. 3. Normocytic, normochromic anemia. 4. Hypertension. 5. Fatigue. 6. Hyperlipidemia. 7. Hyperthyroidism. 8. Impaired fasting glucose. DISCHARGE DIAGNOSIS: Right knee osteoarthritis status post right total knee arthroplasty. HISTORY: Patient is a 66-year-old female with progressively worsening right knee pain and stiffness. She continues to have pain with weightbearing activities and activities of daily living. She has not improved with conservative measures, so she has consented for an elective right total knee arthroplasty with Dr. Elio Gillette. OPERATION PERFORMED: Right total knee arthroplasty. HOSPITAL COURSE: Patient underwent a right total knee arthroplasty under spinal anesthesia, which was uneventful. She was up with physical therapy per their protocol, weightbearing as tolerated on the right lower extremity. She was discharged on oral pain medications with instructions to resume her preoperative medications and diet. She will use her thromboembolic deterrent stockings and take her Coumadin for 30 days postoperatively to prevent deep vein thrombosis. Patient will followup in our office in 12-14 days for a wound check or staple removal. She is encouraged to contact our office sooner if there is any increased pain, drainage, redness, numbness, or tingling in the extremities, fever greater than 101 degrees, or any other concerns. Please see medical record for additional details. NOREEN
--- NOTE | 2017-04-08 12:35 | RO ---
DATE OF PROCEDURE: 03/21/2017 PREOPERATIVE DIAGNOSIS: Right knee osteoarthritis. POSTOPERATIVE DIAGNOSIS: Right knee osteoarthritis. PROCEDURE: Right total knee arthroplasty using a PFC size 3 femur, size 3 tibia, 15 polyethylene and unknown patellar size, which would be documented in the record. SURGEON: Dr. Elio Gillette MIXER ATTENDANT: Archie Velazquez ANESTHESIA: Spinal with block. COMPLICATIONS: None. INDICATIONS: This is a 66-year-old woman who has had gradually worsening right knee pain. She wished to go ahead with knee replacement having failed conservative management. She understood the nature of this and the risks of bleeding, infection, damage to nerves, vessels, persistent pain, wear, loosening, blood clots, medical problems, among others, including . Preop clearance was obtained. PROCEDURE: The patient was taken to the operating room and placed in supine position after spinal anesthesia was induced. The right lower extremity was prepped and draped in the usual sterile fashion. A time-out was performed. I then created a longitudinal incision over the anterior aspect of the knee. Sharp dissection was carried down through subcutaneous tissue. I performed a medial parapatellar arthrotomy. The patella was everted. We flexed the knee up. I used the canal initiating reamer, followed by the intramedullary guide, which was set at an appropriate amount of valgus and 10 mm of cut. This was pinned in place and the group fitness assistant department head made a distal femoral cut in the usual fashion. I then sized the femur to be a 3. The 3 cutting block was placed in slight external rotation with the guide and pinned in place. The remaining cuts were made, protecting soft tissues at all times. I then prepared the tibia. The tibial alignment guide was placed in appropriate amount of posterior slope and valgus. This was pinned in place. The external alignment guide was used to confirm the alignment of this and then the proximal tibia cut was made removing about 10 mm off the high side. The soft tissues then removed from both sides and any remaining osteophytes removed using a percussion instrument tuner, knife and osteotome. We then prepared the tibia using a size 3 tray, which was pinned in place, broached, drilled. The box cut was then used. I decided on the posterior stabilized, the posterior cruciate ligament (PCL) had been deficient. So the box cut size 3 guide was then placed and the remaining cuts were made using oscillating saws and file. Spacer blocks were used and it felt like a 15 was the most appropriate polyethylene and the trial components were then placed. The 15 seemed to have excellent stability and alignment and did not kick out in flexion. Overall, very pleased with the components. I then freehand cut the patella and sized this and, as I am dictating this from memory, I do not remember the exact size, and I do not see it recorded on the operative notes with the prosthesis stickers, but this would have likely been a 32 or 35 button. Drill holes were placed. The trial button was placed. We put the knee through a range of motion and excellent tracking was noted. The soft tissue balance was excellent. I had performed a medial release to some degree at the beginning and at all times when the cuts were made the soft tissues were protected. I then removed the trial components. The group fitness assistant department head prepared the bone cement in the modern technique on the back table. I then cemented on the tibial component, impacted this in place, removed excess bone cement, and placed the femoral component, impacted this in place, and removed excess bone cement. The polyethylene was then inserted. We brought the knee out in extension, cemented on the patella and held it in place with a clamp. Then waited until the cement hardened. Tranexamic acid (TXA) solution was placed in the knee. We also irrigated multiple times prior to cementing and irrigated copiously at this point prior to placement of the TXA solution. I had made sure that the bony surfaces were all carefully dried prior to cementing. Once the cement hardened, we removed the patellar clamp and closed the deep layer with interrupted #1 Vicryl sutures, followed by a running Stratafix suture in each direction. Irrigated again. The subcutaneous was closed with #2-0 Vicryl and the skin with arielle. Sterile dressing was applied. Tourniquet was deflated. She was taken to recovery room in stable condition. There were no known complications. The plan will be routine postop. The group fitness assistant department head was instrumental in mixing the cement, in holding retractors, making one of the cuts, and assisting in wound closure. This dictation was dictated from memory and from review of the records as the dictation appears to have been lost that I dictated the day of the surgery.
== END 2017-03-24 10:40 | disposition home health service (06) | DRG 470 ==
LOC: M OR 06:38 → M MS5PR 12:30
PROVIDERS: ADMIT Orthopaedic Surgery; ATTEND Orthopaedic Surgery
PROC: 0SRC0J9 Replacement of Right Knee Joint with Synthetic Substitute, Cemented, Open Approach (ICD-10-PCS; principal; 2017-03-21 09:45)
DX: M17.11 Unilateral primary osteoarthritis, right knee (principal); I12.9 Hypertensive chronic kidney disease with stage 1 through stage 4 chronic kidney disease, or unspecified chronic kidney disease; E03.9 Hypothyroidism, unspecified; E78.4 Other hyperlipidemia; N18.3 Chronic kidney disease, stage 3 (moderate); G20 Parkinson's disease; D64.9 Anemia, unspecified; Z79.899 Other long term (current) drug therapy; Z79.82 Long term (current) use of aspirin

== ENCOUNTER → 2017-04-07 | Outpatient (REF) | payer MEDICARE ==
[~2017-04-07] MED LIST changes: +COUM2.5T17 PO; +TRAM50TA2 PO
[2017-04-07 11:37] LABS: INR 1.55
== END ==
LOC: M SHH 11:17
PROVIDERS: ATTEND Nurse Practitioner Family
DX: Z79.01 Long term (current) use of anticoagulants (principal)

== ENCOUNTER → 2017-04-11 | Outpatient (REF) | payer MEDICARE ==
[2017-04-11 13:52] LABS: INR 1.46
== END ==
LOC: M SHH 13:07
PROVIDERS: ATTEND Orthopaedic Surgery
DX: Z79.01 Long term (current) use of anticoagulants (principal)

== ENCOUNTER → 2017-04-14 | Outpatient (REF) | payer MEDICARE ==
[2017-04-14 12:20] LABS: INR 1.14
== END ==
LOC: M SHH 09:15
PROVIDERS: ATTEND Nurse Practitioner Family
DX: Q62.0 Congenital hydronephrosis (principal); Z79.01 Long term (current) use of anticoagulants

== ENCOUNTER → 2017-04-14 | Outpatient (REF) | payer MEDICARE ==
[2017-04-14 12:47] LABS: ANION GAP 8 MEQ/L (8-16); BLOOD UREA NITROGEN 12 MG/DL (7-18); CALCIUM LEVEL 7.9 MG/DL (8.8-10.2); CARBON DIOXIDE LEVEL 31 MEQ/L (21-32); CHLORIDE LEVEL 107 MEQ/L (98-107); CREATININE FOR GFR 0.91 MG/DL (0.55-1.02); GLOMERULAR FILTRATION RATE > 60.0 (>45); GLUCOSE, FASTING 87 MG/DL (80-110); POTASSIUM SERUM 3.7 MEQ/L (3.5-5.1); SODIUM LEVEL 146 MEQ/L (136-145)
== END ==
LOC: M LAB REF 09:15
DX: Q62.0 Congenital hydronephrosis (principal); Z79.01 Long term (current) use of anticoagulants

== ENCOUNTER → 2017-04-18 | Outpatient (REF) | payer MEDICARE ==
[2017-04-18 11:16] LABS: INR 1.21
== END ==
LOC: M LAB REF 10:56
PROVIDERS: ATTEND Nurse Practitioner Family
DX: Z79.01 Long term (current) use of anticoagulants (principal)

== ENCOUNTER 2017-07-07 10:48 | Inpatient (IN) | payer MEDICARE ==
[2017-06-22 09:39] VITALS: BP 114/74
--- NOTE | 2017-07-01 22:51 | HPE ---
DATE OF ADMISSION: 07/07/2017 CHIEF COMPLAINT: Left knee pain and stiffness. HISTORY: The patient is a 66-year-old female with progressively worsening left knee pain and stiffness. She has failed to improve with conservative measures. She continues to have symptoms with weightbearing activities and activities of daily living. She has consented for an elective left total knee arthroplasty with Dr. Gillette. Medical optimization pending with Dr. Villalba. CURRENT MEDICATIONS: - aspirin 81 mg daily - calcium with vitamin D 600/400 mg twice daily - multivitamin daily - glucosamine chondroitin daily - levothyroxine 50 mcg daily - lisinopril 5 mg daily - lovastatin 40 mg daily - Requip 0.5 mg three times a day ALLERGIES: No known drug allergies. CURRENT MEDICAL CONDITIONS: 1. Hypothyroidism. 2. Hypertension. 3. Hyperlipidemia. 4. Parkinson's disease. 5. Stage III chronic kidney disease. 6. Normochromic, normocytic anemia. 7. Impaired fasting glucose. PREVIOUS SURGICAL HISTORY: Appendectomy and a right total knee arthroplasty. SOCIAL HISTORY: The patient is a nonsmoker, and only socially consumes alcohol. REVIEW OF SYSTEMS: The patient denies fevers, chills, nausea, vomiting or diarrhea. She denies chest pain, shortness of breath, cough, headaches, lightheadedness, or abdominal pain. She continues to have left knee pain with weightbearing activities and activities of daily living. PHYSICAL EXAMINATION: VITAL SIGNS: Height 63.75 inches, weight 171 pounds, temperature 97.6, blood pressure 116/60, heart rate 64, respirations 20. GENERAL: The patient is a well-nourished, well-developed female in no apparent distress. HEART: Regular rate and rhythm. LUNGS: Clear to auscultation bilaterally. ABDOMEN: Bowel sounds present. Abdomen soft, nontender to palpation. NECK: Supple without lymphadenopathy. MUSCULOSKELETAL: Inspection of the left knee revealed no gross abnormalities. There is tenderness along both the medial and lateral joint line. The patient can extend to almost 5 degrees and flex to approximately 100 degrees. Left lower extremity strength is normal. No hip irritability was elicited with range of motion. Her calf is soft and nontender to palpation with no palpable cords noted. Distally she is neurovascularly intact. LABORATORY DATA: Chest x-ray: Old granulomatous disease. EKG: Sinus rhythm. Nonspecific precordial T-wave abnormalities. Both chest x-ray and EKG are from February of 2017. Urinalysis positive for 3+ leukocyte esterase, positive WBC's, RBC's, and bacteria. There is a small amount of mucus and moderate calcium oxylate crystals. Urine culture shows heavy growth of Staphylococcus epidermidis. Complete blood count: WBC is 5.3, RBC is 4.21, hemoglobin 12.4, hematocrit 38.7, platelets 267. Erythrocyte sedimentation rate elevated at 33. Complete metabolic profile: Fasting glucose elevated at 113, BUN 18, creatinine for GFR elevated at 1.05. GFR 55.7. Sodium 141, potassium 3.6, chloride 101, carbon dioxide 32, anion gap eight, calcium 10. AST 13, ALT 14, alkaline phosphatase 83, total bilirubin 0.4, total protein 7.3. Albumin 4.0, albumin-globulin ratio 1.21. Prothrombin time 12.5, INR 0.93. Nasal and sinus culture revealed normal alyce. ASSESSMENT/PLAN: 1. Left knee osteoarthritis with x-rays notable for end-stage degenerative changes. The patient has consented for an elective left total knee arthroplasty with Dr. Gillette. Medical optimization pending with Dr. Villalba. 2. Urinary tract infection. Treated appropriately. SHARONAD
[~2017-07-07] VITALS: Ht 161.3 cm; Wt 78.5 kg
[2017-07-07] MEDS ORDERED: LIDOCAINE 1% MDV 20ML VIAL SQ PRN (11:00)
[2017-07-07] MEDS ORDERED: LR 1,000 ML IV ONE (11:00)
[2017-07-07] MEDS ORDERED: MIDAZOLAM INJ 2 MG/2 ML VIAL (J2250) As Ordered ONE ×2 (12:27→12:37)
[2017-07-07] MEDS ORDERED: fentaNYL 100 MCG/2 ML INJECTION (J3010) As Ordered ONE ×2 (12:27→12:37)
[2017-07-07] MEDS ORDERED: PROPOFOL 500 MG/50 ML VIAL As Ordered ONE (12:37)
[2017-07-07] MEDS ORDERED: LIDOCAINE 2% INJ 100 MG/5 ML SDV (FOR ANES.) As Ordered ONE (12:37)
[2017-07-07] MEDS ORDERED: EPINEPHrine INJ 1 MG/ML 1ML AMP As Ordered ONE (13:15)
[2017-07-07] MEDS ORDERED: BUPIVACAINE LIPOSOME/PF 1.3% 20 ML VIAL (13.3MG/ML)(EXPAREL) As Ordered ONE (13:15)
[2017-07-07] MEDS ORDERED: TRANEXAMIC ACID 100 MG/ML 10ML VIAL As Ordered ONE (13:15)
[2017-07-07] MEDS: MIDAZOLAM INJ 2 MG/2 ML VIAL (J2250) IV PRN ×2 (13:22→13:24)
[2017-07-07] MEDS ORDERED: fentaNYL 100 MCG/2 ML INJECTION (J3010) IV PRN ×2 (14:00→16:15)
--- NOTE | 2017-07-07 14:18 | IPN ---
DATE: 07/07/2017 Patient seen and examined. She wished to go ahead with a left total knee arthroplasty. This is likely to be cruciate sacrificing knee. She recently went through this on the right side. She is well aware of the nature of the procedure and the risks of bleeding, infection, damage to nerves, vessels, persistent pain, wear loosening, blood clots, medical problems, among others.
[2017-07-07] MEDS ORDERED: ceFAZolin 1GM INJ (J0690) As Ordered ONE (14:47)
[2017-07-07] MEDS ORDERED: ESMOLOL INJ 100MG/10ML VIAL As Ordered ONE (15:21)
[2017-07-07] MEDS ORDERED: ePHEDrine SULFATE 25 MG/5 ML(5MG/ML) SYRINGE As Ordered ONE (15:21)
[2017-07-07] MEDS ORDERED: PERCOCET 5MG/325MG TAB PO PRN (16:15)
[2017-07-07] MEDS ORDERED: ONDANSETRON 4MG/2ML VIAL (J2405) IV PRN ×2 (16:15→16:30)
[2017-07-07] MEDS ORDERED: LR 1,000 ML IV SCH (16:15)
[2017-07-07] MEDS ORDERED: HYDROmorphone HCL 1 MG/ML SYRINGE (J1170) IV PRN ×3 (16:15)
--- NOTE | 2017-07-07 16:28 | CR ---
DATE OF CONSULTATION: 07/07/2017 REFERRING PHYSICIAN: Dr. Matthieu Gillette, orthopedic team REASON FOR CONSULTATION: Medical management. HISTORY OF PRESENT ILLNESS: The patient is a 66-year-old female with a past medical history significant for hypothyroidism, hypertension, chronic kidney disease, stage III, Parkinson disease, had a preoperative clearance done by primary care provider, Dr. Kayleen Villalba on 06/23/2017. On 07/07/2017 patient had a left total knee replacement performed by Dr. Gillette. Patient tolerated the procedure well. Then hospitalist team was called for consultation. PAST MEDICAL HISTORY: 1. Chronic kidney disease, stage III. 2. Normocytic anemia. 3. Hypertension. 4. External hemorrhoids. 5. Hyperlipidemia. 6. Hypothyroidism. 7. Impaired fasting glucose, diet controlled. 8. Parkinson disease. 9. Lumbar spinal stenosis. PAST SURGICAL HISTORY: Appendectomy. SOCIAL HISTORY: Denies smoking. Denies alcohol use. Denies recreational drug use. REVIEW OF SYSTEMS: GENERAL: Denied any fevers or chills. HEENT: Denied vision change, auditory change. CARDIOVASCULAR: Denied chest pain or palpitations. RESPIRATORY: Denies any shortness of breath, cough, or sputum production. GASTROINTESTINAL: Denied any nausea, vomiting, or abdominal pain. MUSCULOSKELETAL: Patient had a left total knee replacement today. Denied any other acute musculoskeletal or joint pain. NEUROLOGIC: Decreased sensation from the spinal anesthesia. OBJECTIVE: VITAL SIGNS: Temperature is 96.7, pulse is 80, respirations 14, blood pressure 123/58, pulse oximetry 96% in room air. GENERAL: No sign of acute distress, alert and oriented times three. HEENT: Normocephalic, atraumatic. Extraocular motor grossly intact. CARDIOVASCULAR: Positive S1, S2, regular rate. LUNGS: Clear to auscultation bilaterally. ABDOMEN: Soft, nontender, nondistended. Bowel sounds present. No rebound. No guarding. EXTREMITIES: Compression stockings in place. No swelling. NEUROLOGIC: Decreased sensation of the bilateral lower extremities. Patient did have spinal anesthesia during the procedure. LABORATORY DATA: From 06/22/2017 showed WBC 5.43, hemoglobin 12.4, hematocrit 38.7, platelet count is 267. Sodium is 141, potassium 3.6, chloride 101, carbon dioxide 32, BUN 18, creatinine 1.05, GFR is 55.7, fasting glucose 113, calcium 10. ASSESSMENT AND PLAN: 1. Left total knee replacement. Refer diet, pain control, activity level, anticoagulation to primary surgical team. 2. Hypertension. Currently blood pressure is in the satisfactory range. Patient is on lisinopril. 3. Recent UTI. Per patient. She just finished her course of antibiotic last Tuesday. On June 22, there is urine culture positive for Strep Epidermitis. Will follow up with repeat UA. 4. Hypothyroidism, on Synthroid. Will follow with thyroid-stimulating hormone (TSH) in the morning. 5. History of Parkinson. Patient is on Requip. 6. Impaired fasting glucose, diet controlled. Follow A1c in the morning. 7. Chronic kidney disease, stage III. Continue to monitor. 8. History of external hemorrhoids. 9. Hyperlipidemia. On statin. 10. History of anemia. follow up with CBC in morning. 11. Deep vein thrombosis (DVT) prophylaxis. Patient on thromboembolic deterrents (TEDs) and sequentials. Refer to orthopedic team for anticoagulation. NOREEN
[2017-07-07] MEDS ORDERED: FLEET ENEMA PR PRN (16:30)
[2017-07-07] MEDS ORDERED: ACETAMINOPHEN TAB 650MG DOSE (2X325MG) PO PRN (16:30)
[2017-07-07 16:40] VITALS: BP 138/64
[2017-07-07] MEDS ORDERED: WARFARIN SOD 5 MG TAB PO ONE (17:00)
[2017-07-07 17:10] VITALS: BP 150/67
[2017-07-07] MEDS: LR 1,000 ML IV SCH (17:59)
[2017-07-07 18:10] VITALS: BP 148/79
--- NOTE | 2017-07-07 19:01 | RO ---
DATE OF PROCEDURE: 07/07/2017 PREOPERATIVE DIAGNOSIS: Left knee osteoarthritis valgus. POSTOPERATIVE DIAGNOSIS: Left knee osteoarthritic valgus. PROCEDURE: Left total knee arthroplasty using a PFC posterior stabilized rotating platform size 4 narrow femur, 3 tibia tray, 15 polyethylene with a 32 patellar button. SURGEON: Dr. Elio Gillette ARMOR OFFICER: GET Alvares ANESTHESIA: Spinal ESTIMATED BLOOD LOSS: 50 COMPLICATIONS: None. INDICATIONS: This 66-year-old woman who had a recent right total knee arthroplasty and then presented for a left knee replacement. She had significant valgus and significant arthritis and failed conservative management was overall happy with her right knee. She understood the nature of procedure the risks of bleeding, infection, damage to nerves, vessels, persistent pain, wear loosening, blood clots, medical problems among others, including . PROCEDURE: The patient was taken to the operating room and placed in supine position after spinal anesthesia was induced. Left lower extremity was prepped and draped in the usual sterile fashion. Time-out was performed. Tourniquet was inflated. I then created longitudinal incision over the anterior aspect of the knee and sharp dissection was carried down through the subcutaneous tissue using sharp dissection. I performed a medial parapatellar arthrotomy and everted the patella. Flexed the knee up and used a canal initiating reamer on the femoral side followed by the intramedullary guide set at 7 degrees of valgus and 10 mm cut which reasonably well matched her femoral anatomy. The distal femoral cut was made after the pin holes were placed in the end of the femur. I did bring the cutting block back 2 mm before the cut was made. This was made by the farm assistant. I protected soft tissues at all times. We then sized the femur to be a 4. It looked like a 4 narrow would be the most appropriate and the distal femoral holes were placed followed by the four-in-one cutting block size 4. This was secured in place and the remaining four cuts were made. Protecting soft tissues at all times. Then made the tibial cut, put the tibial alignment guide on the appropriate amount of valgus posterior slope pinned this in place at about 8 mm off which turned out to both medial and lateral side and seemed to be an appropriate thickness cut. This was made protecting soft tissues and removed this bone. The PCL had been removed. I then used a spacer blocks and a size 15 fit quite nicely in flexion. However, it was tight in extension, so I felt that I had to take more off the distal femur. I ended up taking the additional 2 mm off the distal femur which did not affect the attachment of the collateral ligaments. I did so by replacing the distal femoral cutting block using a batwing alignment guide and pinning it in place and then dialing it back a total of 4 mm on the femoral side, first two and then an additional two. The four-in-one cutting block was secured to the end of the femur and lined up with the anterior cut. The chamfer cuts were made and then I also placed the box cutting guide and the box cut was made. At this point the spacer block was then used a size 15 seemed to be excellent in both flexion and extension as far as stability. The trial components were placed after I prepared the tibial surface by placing a 3 tray, drilling, broaching. The actual 4 narrow femoral component and 15 rotating platform posterior stabilized polyethylene were placed and put the knee through range of motion. I was very pleased with the alignment, full extension. Excellent flexion and excellent stability in flexion/extension. She was in some mild valgus which I did intentionally to try to balance her. I then freehand cut the patella which was actually quite thin and I removed about 6 mm of bone sized to be a 32 button and the drill holes were placed followed by the trial button. The patella tracked quite nicely. The farm assistant prepared the bone cement in the modern technique on the back table. I irrigated the bony surfaces. I also injected some Exparel around the periosteum and extensor mechanism. The bony surfaces were copiously irrigated as was the entire wound. I dried the tibial surface and cemented the tibial tray on. I also cement on the femoral component and impacted it in place, made sure these were well seated and excess bone cement was removed. Placed the 15 x 4 polyethylene posterior stabilized and brought the knee out in extension. I made sure there was no remaining excess bone cement, cemented on the patellar component held in place with a bone holding clamp and we irrigated copiously. I placed the rest of the Exparel around the knee in the deeper tissues. I placed some TXA solution in the knee joint and then suctioned this out. I then finally irrigated with antibiotic irrigation, closed the deep layer with interrupted #1 Vicryl sutures followed by running Stratafix suture working in opposite directions and irrigated, closed subcu with 2-0 Vicryl and the skin with arielle. Tourniquet was deflated prior to final wound closure. She was taken to recovery room in stable condition. There were no known complications. Standard dressing had been applied. Plan will be routine postop. The farm assistant was instrumental holding retractors and making a couple of the bone cuts and mixing the cement and helping closing helping close the wound.
[2017-07-07] MEDS ORDERED: traMADol 50 MG TAB PO PRN (19:45)
[2017-07-07] MEDS: traMADol 50 MG TAB PO PRN (20:06)
[2017-07-07] MEDS: rOPINIRole 0.25 MG TAB(REQUIP) PO SCH (20:06)
[2017-07-07] MEDS: rOPINIRole 1MG TAB PO SCH (20:06)
[2017-07-07] MEDS: ACETAMINOPHEN 500 MG TAB PO PRN (21:48)
[2017-07-07 22:00] VITALS: BP 136/77
[2017-07-08] MEDS: traMADol 50 MG TAB PO PRN ×4 (02:08→20:50)
[2017-07-08] MEDS: LR 1,000 ML IV SCH (05:35)
[2017-07-08] MEDS: LEVOTHYROXINE 50MCG TABLET (0.05MG) PO SCH (05:44)
[2017-07-08] MEDS: ACETAMINOPHEN 500 MG TAB PO PRN ×3 (05:45→18:10)
[2017-07-08 06:00] VITALS: BP 134/64
[2017-07-08 06:29] LABS: MEAN CORPUSCULAR HEMOGLOBIN 29.9 pg (27.0-33.0); MEAN CORPUSCULAR HGB CONC 33.2 g/dl (32.0-36.5); MEAN CORPUSCULAR VOLUME 89.9 fl (80.0-96.0); PLATELET COUNT, AUTOMATED 206 10^3/uL (150-450); RED CELL DISTRIBUTION WIDTH 14.1 % (11.5-14.5); WHITE BLOOD COUNT 8.2 10^3/uL (4.0-10.0)
[2017-07-08 06:45] LABS: INR 1.22
[2017-07-08 07:04] LABS: CALCIUM LEVEL 9.1 MG/DL (8.8-10.2); GLOMERULAR FILTRATION RATE 58.9 (>45); MAGNESIUM LEVEL 1.6 MG/DL (1.8-2.4); POTASSIUM SERUM 4.1 MEQ/L (3.5-5.1)
[2017-07-08] MEDS ORDERED: MAG SULF 1GM/100ML (MAG RUN) 1 GM in APPROPRIATE DILUENT 1 EA IV ONE (08:00)
[2017-07-08] MEDS: SENOKOT S TAB PO SCH ×2 (08:27→20:49)
[2017-07-08] MEDS: MIRALAX *UNIT DOSE* 17GM PACKET PO SCH (08:27)
[2017-07-08] MEDS: MOM 30ML SUSPENSION UDC PO SCH (08:27)
[2017-07-08] MEDS: MULTIVITAMINS/MINERALS THERAP 1 TAB PO SCH (08:27)
[2017-07-08 08:28] VITALS: BP 134/64
[2017-07-08] MEDS: rOPINIRole 1MG TAB PO SCH ×3 (08:28→20:49)
[2017-07-08] MEDS: rOPINIRole 0.25 MG TAB(REQUIP) PO SCH ×3 (08:28→20:49)
[2017-07-08] MEDS ORDERED: PREVNAR 13 VACCINE SYRINGE (CPT CODE:90670) IM ONE (09:00)
[2017-07-08] MEDS ORDERED: LISINOPRIL 5 MG TAB PO SCH (09:00)
[2017-07-08 10:00] VITALS: BP 103/51
--- NOTE | 2017-07-08 11:21 | REP ---
Clinical: Status post knee replacement. Technique AP and cross-table lateral views. Findings: The patient is status post left knee replacement with normal positioning and appearance to the femoral and tibial components. Overlying postsurgical changes appreciated. Impression: Status post left knee replacement. Signed by Jimbo Flowers MD 07/08/2017 11:14 A
[2017-07-08] MEDS ORDERED: LIDOCAINE 1% MDV 20ML VIAL ONE (11:29)
[2017-07-08] MEDS ORDERED: dexameTHASONE 10 MG/1 ML VIAL PRES.FREE (J1100) ONE (11:29)
[2017-07-08] MEDS ORDERED: ROPIvacaine 0.5% 30 ML INJECTION (J2795) ONE (11:29)
[2017-07-08 14:00] VITALS: BP 100/48
--- NOTE | 2017-07-08 14:01 | IPNPDOC ---
Text Note Date of Service The patient was seen on 07/08/17. NOTE Subjective: Patient denies any complaints. Feels well. Objective: Vitals: (see below) General: No acute distress, laying comfortably in bed. HEENT: Moist mucous membranes. Neck: No JVD or lymphadenopathy Cardiac: RRR, No murmurs Pulm: Clear to auscultation b/l. No wheezing, rhonchi Abd: NT/ND + BS Ext: No edema or cyanosis. Left knee with WHITNEY bandage intact. Distal pulses intact. No cyanosis. Labs (see below) Images: Assessment/Plan 1. Postop day 1 status post left total knee. Management per orthopedics. 2. Hypertension- controlled. We'll hold lisinopril for now. 3. Hypothyroidism- on Synthroid 4. Recent treatment of a urinary tract infection resolved. 5. CK stage III currently stable. Avoid nephrotoxins. 6. History of Parkinson's on Requip 7. History of external hemorrhoids no bleeding at this time. 8. Hyperlipidemia on statin and history of chronic anemia stable. Will need outpatient follow-up. DVT prophy:Per orthopedics. VS,Fishbone, I+O VS, Fishbone, I+O Laboratory Tests 07/08/17 06:17 Red Blood Count 3.38 L, Mean Corpuscular Volume 89.9, Mean Corpuscular Hemoglobin 29.9, Mean Corpuscular Hemoglobin Concent 33.2, Red Cell Distribution Width 14.1, Calcium Level 9.1 Vital Signs Date Time Temp Pulse Resp B/P (MAP) Pulse Ox O2 Delivery O2 Flow Rate FiO2 07/08/17 10:00 97.2 65 18 103/51 (68) 97 Room Air 07/08/17 06:00 2.0 I&O- Last 24 Hours up to 6 AM 07/09/17 06:00 Intake Total 240 ml Output Total 150 ml Balance 90 ml STARR BRADLEY MD Jul 08, 2017 14:01
[2017-07-08] MEDS ORDERED: WARFARIN SOD 5 MG TAB PO ONE (17:00)
[2017-07-08 22:00] VITALS: BP 130/56
[2017-07-09] MEDS: ACETAMINOPHEN 500 MG TAB PO PRN ×2 (00:24→06:26)
[2017-07-09] MEDS: traMADol 50 MG TAB PO PRN ×2 (02:50→09:35)
[2017-07-09 06:00] VITALS: BP 125/59
[2017-07-09 06:13] LABS: MEAN CORPUSCULAR HEMOGLOBIN 29.6 pg (27.0-33.0); MEAN CORPUSCULAR HGB CONC 32.7 g/dl (32.0-36.5); MEAN CORPUSCULAR VOLUME 90.4 fl (80.0-96.0); PLATELET COUNT, AUTOMATED 188 10^3/uL (150-450); RED CELL DISTRIBUTION WIDTH 14.4 % (11.5-14.5); WHITE BLOOD COUNT 5.3 10^3/uL (4.0-10.0)
[2017-07-09 06:23] LABS: INR 2.47
[2017-07-09] MEDS: LEVOTHYROXINE 50MCG TABLET (0.05MG) PO SCH (06:26)
[2017-07-09 06:36] LABS: ANION GAP 5 MEQ/L (8-16); BLOOD UREA NITROGEN 13 MG/DL (7-18); CALCIUM LEVEL 8.7 MG/DL (8.8-10.2); CARBON DIOXIDE LEVEL 32 MEQ/L (21-32); CHLORIDE LEVEL 100 MEQ/L (98-107); CREATININE FOR GFR 0.73 MG/DL (0.55-1.02); GLOMERULAR FILTRATION RATE > 60.0 (>45); GLUCOSE, FASTING 99 MG/DL (80-110); MAGNESIUM LEVEL 1.9 MG/DL (1.8-2.4); POTASSIUM SERUM 3.8 MEQ/L (3.5-5.1); SODIUM LEVEL 137 MEQ/L (136-145)
[2017-07-09] MEDS ORDERED: TRAM50TA2 PO (08:18)
[2017-07-09] MEDS ORDERED: COUM2.5T17 PO (08:18)
[2017-07-09] MEDS ORDERED: PREVNAR 13 VACCINE SYRINGE (CPT CODE:90670) IM ONE (09:00)
[2017-07-09] MEDS: MOM 30ML SUSPENSION UDC PO SCH (09:31)
[2017-07-09] MEDS: MIRALAX *UNIT DOSE* 17GM PACKET PO SCH (09:31)
[2017-07-09] MEDS: rOPINIRole 0.25 MG TAB(REQUIP) PO SCH (09:34)
[2017-07-09] MEDS: rOPINIRole 1MG TAB PO SCH (09:34)
[2017-07-09] MEDS: SENOKOT S TAB PO SCH (09:34)
[2017-07-09] MEDS: MULTIVITAMINS/MINERALS THERAP 1 TAB PO SCH (09:35)
--- NOTE | 2017-07-09 10:16 | IPNPDOC ---
Text Note Date of Service The patient was seen on 07/09/17. NOTE Subjective: Patient denies any complaints. Feels well. Objective: Vitals: (see below) General: No acute distress, laying comfortably in bed. HEENT: Moist mucous membranes. Neck: No JVD or lymphadenopathy Cardiac: RRR, No murmurs Pulm: Clear to auscultation b/l. No wheezing, rhonchi Abd: NT/ND + BS Ext: No edema or cyanosis. Left knee with WHITENY bandage intact. Distal pulses intact. No cyanosis. Labs (see below) Images: Assessment/Plan 1. Postop day 2 status post left total knee. Management per orthopedics. 2. Hypertension- controlled. We'll hold lisinopril for now. 3. Hypothyroidism- on Synthroid 4. Recent treatment of a urinary tract infection resolved. 5. CK stage III currently stable. Avoid nephrotoxins. 6. History of Parkinson's on Requip 7. History of external hemorrhoids no bleeding at this time. 8. Hyperlipidemia on statin and history of chronic anemia stable. Will need outpatient follow-up. DVT prophy:Per orthopedics. VS,Fishbone, I+O VS, Fishbone, I+O Laboratory Tests 07/09/17 05:37 Red Blood Count 3.01 L, Mean Corpuscular Volume 90.4, Mean Corpuscular Hemoglobin 29.6, Mean Corpuscular Hemoglobin Concent 32.7, Red Cell Distribution Width 14.4, Calcium Level 8.7 L Vital Signs Date Time Temp Pulse Resp B/P (MAP) Pulse Ox O2 Delivery O2 Flow Rate FiO2 07/09/17 09:35 18 07/09/17 06:00 97.1 77 125/59 (81) 96 Room Air 07/08/17 06:00 2.0 STARR BRADLEY MD Jul 09, 2017 10:16
--- NOTE | 2017-07-11 18:35 | DSES ---
DATE OF ADMISSION: 07/07/2017 DATE OF DISCHARGE: 07/09/2017 ADMISSION DIAGNOSIS: Osteoarthritis, left knee. OTHER DIAGNOSES: 1. Hypothyroidism. 2. Hypertension. 3. Elevated lipids. 4. Parkinson's disease. 5. Chronic kidney disease. 6. Anemia. 7. Impaired fasting glucose. DISCHARGE DIAGNOSIS: Osteoarthritis, left knee, status post left total knee arthroplasty. OPERATION PERFORMED: Left total knee arthroplasty. HISTORY: This a pleasant 66-year-old female patient with progressively worsening left knee pain and stiffness. She failed to improve with conservative management. She was admitted for elective knee replacement on the left side. HOSPITAL COURSE: The patient was admitted on the day of surgery and underwent a left total knee arthroplasty which was uneventful. She did well in the postoperative period and her hospital course was without complications. She was up with physical therapy per their protocol. On the day of discharge, she was doing well, weightbearing as tolerated on her left lower extremity. She will move her left knee to prevent stiffness. She will use adjusted-dose Coumadin and thromboembolic-deterrent (JUAN CARLOS) stockings for 30 days postoperative for deep vein thrombosis (DVT) prophylaxis. She will resume her preoperative medications and diet. She was given instructions to include but not limited to wound monitoring and activity limitations. She will followup in our office in 10-14 days for surgical followup. She will use oral pain medications for pain control.
== END 2017-07-09 11:47 | disposition home or self-care (01) | DRG 470 ==
LOC: M OR 10:48 → M MS5PR 16:40
PROVIDERS: ADMIT Orthopaedic Surgery; ATTEND Orthopaedic Surgery
PROC: 0SRD0JA Replacement of Left Knee Joint with Synthetic Substitute, Uncemented, Open Approach (ICD-10-PCS; principal; 2017-07-07 14:15)
DX: M17.12 Unilateral primary osteoarthritis, left knee (principal); N39.0 Urinary tract infection, site not specified; E03.9 Hypothyroidism, unspecified; I12.9 Hypertensive chronic kidney disease with stage 1 through stage 4 chronic kidney disease, or unspecified chronic kidney disease; E78.5 Hyperlipidemia, unspecified; N18.3 Chronic kidney disease, stage 3 (moderate); Z79.82 Long term (current) use of aspirin; Z79.899 Other long term (current) drug therapy; D64.9 Anemia, unspecified; G20 Parkinson's disease; R73.01 Impaired fasting glucose; K64.4 Residual hemorrhoidal skin tags

== ENCOUNTER → 2017-07-18 | Outpatient (REF) | payer MEDICARE ==
[2017-07-18 15:07] LABS: INR 3.44
== END ==
LOC: M LAB REF 13:28
PROVIDERS: ATTEND Orthopaedic Surgery
DX: M17.11 Unilateral primary osteoarthritis, right knee (principal)

== ENCOUNTER → 2017-07-25 | Outpatient (REF) | payer MEDICARE ==
[2017-07-25 14:08] LABS: INR 1.5
== END ==
LOC: M SHH 13:29
PROVIDERS: ATTEND Orthopaedic Surgery
DX: Z51.81 Encounter for therapeutic drug level monitoring (principal); Z79.01 Long term (current) use of anticoagulants; M17.11 Unilateral primary osteoarthritis, right knee

== ENCOUNTER → 2017-07-28 | Outpatient (REF) | payer MEDICARE ==
[2017-07-28 14:11] LABS: INR 1.64
== END ==
LOC: M SHH 13:48
PROVIDERS: ATTEND Orthopaedic Surgery
DX: Z51.81 Encounter for therapeutic drug level monitoring (principal); Z79.01 Long term (current) use of anticoagulants; M17.11 Unilateral primary osteoarthritis, right knee

== ENCOUNTER → 2017-08-04 | Outpatient (REF) | payer MEDICARE ==
[2017-08-04 14:12] LABS: INR 1.98
== END ==
LOC: M SHH 13:37
PROVIDERS: ATTEND Orthopaedic Surgery
DX: M17.11 Unilateral primary osteoarthritis, right knee (principal)

== ENCOUNTER → 2024-03-05 | Outpatient (CLI) | payer MEDICARE ==
[~2024-03-05] MED LIST changes: -ASPI1TAB PO; +ASPI81TA26 PO; -LISI-542 PO; +LISI5TAB11 PO; +MM S100C PO; -ROPI0.25 PO; -ROPI1TAB PO; +ROPI1TAB73 PO; +ROPI5TAB19 PO; -STOO100C PO
[2024-03-05 14:45] LABS: BASO % 0.5 % (0.0-1.0); EOS % 0.5 % (0.0-3.0); HEMATOCRIT 39.5 % (36.0-47.0); HEMOGLOBIN 12.8 g/dl (12.0-15.5); LYMPH # 0.9 10^3/uL (1.5-5.0); LYMPH % 15.7 % (24.0-44.0); MEAN CORPUSCULAR HEMOGLOBIN 30.9 pg (27.0-33.0); MEAN CORPUSCULAR HGB CONC 32.4 g/dl (32.0-36.5); MEAN CORPUSCULAR VOLUME 95.4 fl (80.0-96.0); MONO # 0.4 10^3/uL (0.0-0.8); MONO % 6.7 % (2.0-8.0); NEUTROPHILS # 4.2 10^3/uL (1.5-8.5); NEUTROPHILS % 75.9 % (36.0-66.0); PLATELET COUNT, AUTOMATED 255 10^3/uL (150-450); RED BLOOD COUNT 4.14 10^6/uL (4.00-5.40); WHITE BLOOD COUNT 5.5 10^3/uL (4.0-10.0)
[2024-03-05 14:50] LABS: ERYTHROCYTE SEDIMENTATION RATE 97 mm/hr (0-30)
[2024-03-05 15:11] LABS: C REACTIVE PROTEIN QUANTITATIV 5.8 MG/DL (<1.0)
[2024-03-05 15:13] LABS: ALBUMIN 2.7 G/DL (3.2-5.2); BILIRUBIN,TOTAL 0.3 MG/DL (0.3-1.2); CALCIUM LEVEL 8.3 MG/DL (8.3-10.6); CREATININE FOR GFR 0.98 MG/DL (0.55-1.30); GLOMERULAR FILTRATION RATE 59.1 (>39); POTASSIUM SERUM 4.2 MMOL/L (3.5-5.1)
[2024-03-05 15:24] LABS: AMORPHOUS SEDIMENT MODERATE (NEGATIVE); APPEARANCE, URINE TURBID (CLEAR); BACTERIA, URINE AUTO 2+ (NEGATIVE); BILIRUBIN, URINE AUTO NEGATIVE (NEGATIVE); BLOOD, URINE BLOOD 1+ (NEGATIVE); COLOR, URINE AMBER (YELLOW); GLUCOSE, URINE (UA) AUTO NEGATIVE (NEGATIVE); KETONE, URINE AUTO TRACE mg/dL (NEGATIVE); LEUKOCYTE ESTERASE, URINE AUTO 2+ (NEGATIVE); NITRITE, URINE AUTO NEGATIVE (NEGATIVE); PROTEIN, URINE AUTO 3+ mg/dL (NEGATIVE); RBC, URINE AUTO 38 /HPF (0-3); SPECIFIC GRAVITY URINE AUTO 1.026 (1.002-1.035); SQUAMOUS EPITHELIAL CELL UR AU 0 /HPF (0-6); UROBILINOGEN, URINE AUTO 0.2 mg/dL (0.0-2.0); WBC, URINE AUTO TNTC /HPF (0-3)
== END ==
LOC: M RAD 13:25
PROVIDERS: ATTEND Internal Medicine Infectious Disease
DX: N13.30 Unspecified hydronephrosis (principal); N39.0 Urinary tract infection, site not specified; R30.0 Dysuria

== ENCOUNTER → 2024-08-13 | Outpatient (CLI) | payer MEDICARE ==
[2024-08-13 14:31] LABS: BASO # 0.1 10^3/uL (0.0-0.2); BASO % 0.9 % (0.0-1.0); EOS # 0.1 10^3/uL (0.0-0.5); EOS % 0.7 % (0.0-3.0); HEMATOCRIT 46.6 % (36.0-47.0); HEMOGLOBIN 14.6 g/dl (12.0-15.5); LYMPH # 1.2 10^3/uL (1.5-5.0); LYMPH % 16.5 % (24.0-44.0); MEAN CORPUSCULAR HEMOGLOBIN 30.2 pg (27.0-33.0); MEAN CORPUSCULAR HGB CONC 31.3 g/dl (32.0-36.5); MEAN CORPUSCULAR VOLUME 96.3 fl (80.0-96.0); MONO # 0.5 10^3/uL (0.0-0.8); MONO % 7.3 % (2.0-8.0); NEUTROPHILS # 5.2 10^3/uL (1.5-8.5); NEUTROPHILS % 74.3 % (36.0-66.0); PLATELET COUNT, AUTOMATED 239 10^3/uL (150-450); RED BLOOD COUNT 4.84 10^6/uL (4.00-5.40)
[2024-08-13 14:56] LABS: C REACTIVE PROTEIN QUANTITATIV 2.79 MG/DL (<1.0)
[2024-08-13 14:57] LABS: ALBUMIN 3.1 G/DL (3.2-5.2); ALKALINE PHOSPHATASE 140 U/L (35-104); ALT/SGPT 10 U/L (7.0-40); AST/SGOT 18 U/L (<34); BILIRUBIN,TOTAL 0.6 MG/DL (0.3-1.2); BLOOD UREA NITROGEN 18 MG/DL (9-23); CARBON DIOXIDE LEVEL 19 MMOL/L (20-31); CHLORIDE LEVEL 109 MMOL/L (98-107); CREATININE FOR GFR 0.84 MG/DL (0.55-1.30); GLOMERULAR FILTRATION RATE > 60.0 (>39); GLUCOSE, FASTING 124 MG/DL (74-106); SODIUM LEVEL 142 MMOL/L (136-145)
== END ==
LOC: M LAB 13:37
PROVIDERS: ATTEND Internal Medicine Infectious Disease
DX: N39.0 Urinary tract infection, site not specified (principal)